=== PATIENT | male | born 1965 | race Caucasian/White ===

== ENCOUNTER 2018-10-12 15:05 | Emergency (ER) | payer OTHER ==
[~2018-10-12] VITALS: Ht 170.2 cm; Wt 76.0 kg
[2018-10-12 15:28] LABS: BASOPHILS # (AUTO) 0.04 x10^3/uL (0-0.1); BASOPHILS % (AUTO) 1 % (0-1); EOSINOPHILS # (AUTO) 0.08 x10^3/uL (0-0.4); EOSINOPHILS % (AUTO) 1 % (1-7); LYMPHOCYTES # (AUTO) 1.94 x10^3/uL (1-3.4); LYMPHOCYTES % (AUTO) 26 % (22-44); MD NO; MEAN CORPUSCULAR HGB CONC 34.7 g/dL (33.2-36.2); MEAN CORPUSCULAR VOLUME 86.4 fL (81-97); MEAN PLATELET VOLUME 7.9 fL (7.4-10.4); MONOCYTES # (AUTO) 0.55 x10^3/uL (0.2-0.8); MONOCYTES % (AUTO) 7 % (2-9); NEUTROPHILS # (AUTO) 4.98 x10^3/uL (1.8-6.8); NEUTROPHILS % (AUTO) 66 % (42-75); PLATELET COUNT 269 x10^3/uL (130-400); RED BLOOD COUNT 5.58 x10^6/uL (4.38-5.82)
--- NOTE | 2018-10-12 15:31 | NUR ---
PT PRESENTED TO ED WITH NARROWING OF VISION AT 9:00 AND ALTERED MENTAL STATUS PER HIS FRIEND. PT A&OX4. PT PLACED ON BP AND CONT. PULSE OXIMETER. ASSESSMENT COMPLETED. CALL LIGHT IN REACH.
[2018-10-12 15:40] LABS: ALBUMIN 3.6 g/dL (3.4-5.0); ANION GAP 5 mmol/L (5-15); CALCIUM 8.7 mg/dL (8.5-10.1); CHLORIDE 110 mmol/L (98-107); CREATININE 0.86 mg/dL (0.7-1.3)
[2018-10-12 15:42] LABS: ALANINE AMINOTRANSFERASE 52 U/L (12-78); ALKALINE PHOSPHATASE 125 U/L (45-117); BILIRUBIN,TOTAL 0.8 mg/dL (0.2-1.0); TOTAL PROTEIN 7.2 g/dL (6.4-8.2)
--- NOTE | 2018-10-12 15:43 | NUR ---
EKG DONE AND PRESENTED TO
--- NOTE | 2018-10-12 16:53 | NUR ---
pt up to br and voided. urine sent to lab
--- NOTE | 2018-10-12 16:56 | NUR ---
AT BEDSIDE. PT WILL BE DISCHARGED WHEN URINE RESULTS COME BACK.
[2018-10-12 17:04] LABS: MICROSCOPIC NOT IND
[2018-10-12 17:09] LABS: CULTURE INDICATED? NO
[2018-10-12 17:18] VITALS: BP 135/78
--- NOTE | 2018-10-12 17:18 | NUR ---
PT GIVEN DISCHARGE INSTRUCTIONS. PT UP AMBULATORY AND STABLE ON FEET.
== END 2018-10-12 17:20 | disposition home or self-care (01) ==
LOC: ED 17:14
DX: R47.81 Slurred speech (principal); R51 Headache; H53.9 Unspecified visual disturbance
CPT/HCPCS: 36415; 70450; 80053; 81003; 85025; 93005; 99284